=== PATIENT | female | born 1980 | race African-American/Black ===

== ENCOUNTER 2022-04-05 11:31 | Emergency (ER) | payer MEDICAID | END 2022-04-05 13:01 | disposition left against medical advice (07) | LOC: EMS 11:40 | DX: M54.9 Dorsalgia, unspecified (principal); Z53.21 Procedure and treatment not carried out due to patient leaving prior to being seen by health care provider ==

== ENCOUNTER 2022-04-24 05:10 | Emergency (ER) | payer MEDICAID ==
[~2022-04-24] VITALS: Ht 172.7 cm; Wt 72.7 kg
[2022-04-24 06:01] VITALS: BP 135/83
== END 2022-04-24 11:00 | disposition left against medical advice (07) ==
LOC: EMS 05:11
DX: M54.50 Low back pain, unspecified (principal); Z59.00 Homelessness unspecified
CPT/HCPCS: 99281; 99283